=== PATIENT | male | born 1930 | race Caucasian/White ===

== ENCOUNTER 2016-07-12 19:05 | Emergency (ER) | payer MEDICARE, OTHER ==
--- NOTE | 2016-07-12 20:00 | ER Document Report ---
ED GI/ - General Chief Complaint: Problem with Urinary Catheter Stated Complaint: CATHETER CONCERNS Time Seen by Provider: 07/12/16 19:47 Notes: Patient is an 85 year old male that comes to the ED for chief complaint of wilder catheter concerns. He states he awkwardly sat earlier and pinched the Wilder catheter and the penis underneath him, he states that afterwards there was some blood noted draining into his Wilder bag, he states he had some initial pain although this pain has resolved. He denies any abdominal pain. Patient had a TURBT by Dr. Monet on Thursday of this week, follows back up on Thursday. Patient is on Vicodin and Bactrim. He denies N/V, fever, flank pain, or any other complaints. He is not on a blood thinner. TRAVEL OUTSIDE OF THE [place] IN LAST 30 DAYS: No - Related Data Allergies/Adverse Reactions: acetaminophen [From Percocet] Adverse Reaction (Verified 07/19/14 15:36) oxycodone HCl [From Percocet] Adverse Reaction (Verified 07/19/14 15:36) Past Medical History - General Information source: Patient - Social History Smoking Status: Never Smoker Frequency of alcohol use: None Drug Abuse: None Lives with: Family Family History: Reviewed & Not Pertinent - Past Medical History Cardiac Medical History: Reports: Hx Hypertension Renal/ Medical History: Denies: Hx Peritoneal Dialysis Musculoskeltal Medical History: Reports Hx Arthritis Past Surgical History: Reports: Hx Abdominal Surgery - colon, ABD aortic stent placed, Hx Appendectomy, Hx Cholecystectomy - Immunizations Hx Diphtheria, Pertussis, Tetanus Vaccination: Yes - unknown Review of Systems - Review of Systems Constitutional: No symptoms reported EENT: No symptoms reported Cardiovascular: No symptoms reported Respiratory: No symptoms reported Gastrointestinal: No symptoms reported Genitourinary: See HPI Male Genitourinary: See HPI Musculoskeletal: No symptoms reported Skin: No symptoms reported Hematologic/Lymphatic: No symptoms reported Neurological/Psychological: No symptoms reported Physical Exam - Vital signs Vitals: Temp Pulse Resp BP Pulse Ox 98.1 F 73 18 133/97 H 95 07/12/16 19:10 07/12/16 19:10 07/12/16 19:10 07/12/16 19:10 07/12/16 19:10 Interpretation: Normal - General General appearance: Appears well, Alert In distress: None - Patient is calm, well-appearing, no signs of distress - HEENT Head: Normocephalic, Atraumatic Eyes: Normal Pupils: PERRL - Respiratory Respiratory status: No respiratory distress Chest status: Nontender Breath sounds: Normal Chest palpation: Normal - Cardiovascular Rhythm: Regular Heart sounds: Normal auscultation Murmur: No - Abdominal Inspection: Normal Distension: No distension Bowel sounds: Normal Tenderness: Nontender Organomegaly: No organomegaly - Genitourinary Inspection: Other - There is some swelling around the base of the glans penis which appears to be mild edema, there is no noted tenderness over the glans or over the shaft of the penis otherwise, normal scrotum exam, normal exam otherwise. Wilder in place, no bleeding around the Wilder noted Tenderness: Nontender Scrotum: Normal. No: Swelling, Redness, Hot to touch - Back Back: Normal, Nontender - Extremities General upper extremity: Normal inspection, Nontender, Normal color, Normal ROM , Normal temperature General lower extremity: Normal inspection, Nontender, Normal color, Normal ROM , Normal temperature, Normal weight bearing. No: Татьяна's sign - Neurological Neuro grossly intact: Yes Cognition: Normal Orientation: AAOx4 [place] Coma Scale Eye Opening: Spontaneous [place] Coma Scale Verbal: Oriented [place] Coma Scale Motor: Obeys Commands [place] Coma Scale Total: 15 Speech: Normal Motor strength normal: LUE, RUE, LLE, RLE Sensory: Normal - Psychological Associated symptoms: Normal affect, Normal mood - Skin Skin Temperature: Warm Skin Moisture: Dry Skin Color: Normal Course - Re-evaluation Re-evalutation: There is some swelling at the base of the glans of the penis, no other signs of trauma, no leaking or bleeding around the Wilder noted, no tenderness over the shaft or scrotum, no other abnormalities noted. Wilder in place, initially urine was pink, however this ran completely clear on reexaminations with insertion of a new bag into the tubing. Patient's abdomen is soft and nontender. Afebrile. Patient is not in any distress, he states he took Tylenol before coming and he denies any current pain. Urinalysis is nonspecific , patient is already on antibiotics. 07/12/16 21:[address] Duenas, Urology electron gun assembler for Dr. Monet. Based on the symptoms, examination, and urine running clear he has no further recommendations at this time, recommends that patient should follow-up on Thursday as planned. Discussed with patient and , discussed follow-up, discussed return precautions in detail, they state understanding and agreement. - Vital Signs Vital signs: Temp Pulse Resp BP Pulse Ox 97.5 F 71 16 153/72 H 96 07/12/16 21:58 07/12/16 21:58 07/12/16 21:58 07/12/16 21:58 07/12/16 21:58 - Laboratory Laboratory results interpreted by me: 07/12/16 20:30 Urine Protein 100 H Urine Blood LARGE H Ur Leukocyte Esterase LARGE H Discharge - Discharge Clinical Impression: Penis injury Qualifiers: Encounter type: initial encounter Qualified Code(s): S39.94XA - Unspecified injury of external genitals, initial encounter Wilder catheter problem Qualifiers: Encounter type: initial encounter Qualified Code(s): T83.9XXA - Unspecified complication of genitourinary prosthetic device, implant and graft, initial encounter Condition: Stable Disposition: HOME, SELF-CARE Additional Instructions: There is some soft tissue swelling at the base of the head of the penis, this should resolve with time. I spoke with Dr. Henrique byrd, electron gun assembler for Dr. Monet. Continue wilder care, follow up with your Urology appointment on Thursday. Return to the ED for any concerning or worsening symptoms - inability to urinate , abdominal pain, increased penis swelling, scrotum swelling, fever, etc. Referrals: SHERINE QUICK MD [Primary Care Provider] - Follow up as needed
[2016-07-12 20:48] LABS: APPEARANCE,URINE CLOUDY; BILIRUBIN,URINE NEGATIVE (NEGATIVE); GLUCOSE, URINE NEGATIVE (NEGATIVE); KETONES,URINE NEGATIVE (NEGATIVE); LEUKOCYTE ESTERASE,URINE LARGE (NEGATIVE); NITRITE,URINE NEGATIVE (NEGATIVE); PROTEIN,URINE 100 mg/dL (NEGATIVE); UROBILINOGEN,URINE NEGATIVE mg/dL (<2.0)
[2016-07-12 22:53] VITALS: BP 153/72
== END 2016-07-12 22:30 | disposition home or self-care (01) ==
LOC: ER 19:05
DX: S39.94XA Unspecified injury of external genitals, initial encounter (principal); T83.9XXA Unspecified complication of genitourinary prosthetic device, implant and graft, initial encounter; X58.XXXA Exposure to other specified factors, initial encounter; I10 Essential (primary) hypertension; Z88.6 Allergy status to analgesic agent; Z98.890 Other specified postprocedural states; Z90.49 Acquired absence of other specified parts of digestive tract
CPT/HCPCS: 81001; 99283

== ENCOUNTER → 2016-08-22 | Outpatient (CLI) | payer MEDICARE, OTHER ==
[2016-08-22 14:42] LABS: ABSOLUTE EOSINOPHILS # (AUTO) 0.3 10^3/uL (0.0-0.6); ABSOLUTE LYMPHOCYTES (AUTO) 1.5 10^3/uL (0.5-4.7); ABSOLUTE MONOCYTES (AUTO) 0.4 10^3/uL (0.1-1.4); HEMATOCRIT 40.5 % (37.9-51.0); HEMOGLOBIN 13.7 g/dL (13.5-17.0); HGB HCT DIFFERENCE 0.6; WHITE BLOOD COUNT 6.4 10^3/uL (4.0-10.5)
[2016-08-22 14:46] LABS: ABSOLUTE NEUT (AUTO) 4.1 10^3/uL (1.7-8.2); BASOPHILS % (AUTO) 0.5 % (0-2); EOSINOPHILS % (AUTO) 4.9 % (0-6); LYMPHOCYTES % (AUTO) 24.1 % (13-45); MEAN CORPUSCULAR HEMOGLOBIN 30.5 pg (27.0-33.4); MEAN CORPUSCULAR HGB CONC 33.9 g/dL (32.0-36.0); MEAN CORPUSCULAR VOLUME 90 fl (80-97); MONOCYTES % (AUTO) 5.7 % (3-13); RED CELL DISTRIBUTION WIDTH 13.3 % (11.5-14.0); SEGMENTED NEUTROPHILS % (AUTO) 64.8 % (42-78)
== END ==
LOC: OD 14:10
PROVIDERS: ATTEND Radiology Radiation Oncology
DX: C67.2 Malignant neoplasm of lateral wall of bladder (principal)
CPT/HCPCS: 36415; 85025